=== PATIENT | male | born 1980 | race Caucasian/White ===

== ENCOUNTER 2017-02-09 12:45 | Emergency (ER) | payer SELFPAY ==
[2017-02-09 12:56] VITALS: BP 111/67
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
== END 2017-02-09 13:12 | disposition home or self-care (01) ==
LOC: UCCORT 12:45
DX: S60.111A Contusion of right thumb with damage to nail, initial encounter (principal); W23.0XXA Caught, crushed, jammed, or pinched between moving objects, initial encounter; Y93.9 Activity, unspecified; Y92.9 Unspecified place or not applicable; F17.210 Nicotine dependence, cigarettes, uncomplicated
CPT/HCPCS: 11740; 99211; G0463

== ENCOUNTER 2019-04-20 10:15 | Emergency (ER) | payer OTHER ==
[2019-04-20 10:58] VITALS: BP 135/84
--- NOTE | 2019-04-20 11:10 | UC ---
Back Pain HPI - HPI Summary HPI Summary: 38-year-old male who awakened this morning with low back pain and shooting from his right buttock partly down his leg. He denies any saddle anesthesia, no numbness or tingliness extremities, no difficulty urinating. 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 - History of Current Complaint Chief Complaint: UCBackPain Stated Complaint: BACK PAIN Time Seen by Provider: 04/20/19 10:52 Hx Obtained From: Patient Onset/Duration: Sudden Onset Timing: Constant Severity Initially: Moderate Severity Currently: Moderate Pain Intensity: 8 Character: Sharp, Aching Aggravating Factor(s): Movement, Lifting, Bending Alleviating Factor(s): Nothing Associated Signs And Symptoms: Negative: Weakness, Numbness, Tingling, Abdominal Pain, Flank Pain, Bladder Incontinence, Bowel Incontinence - Allergies/Home Medications Allergies/Adverse Reactions: Allergies Allergy/AdvReac Type Severity Reaction Status Date / Time No Known Allergies Allergy Verified 04/20/19 10:51 Home Medications: Home Medications Ibuprofen TAB* [Advil TAB*] 800 mg PO Q8H PRN 04/20/19 [History Confirmed ] PMH/Surg Hx/FS Hx/Imm Hx Previously Healthy: Yes - Surgical History Surgical History: None - Family History Known Family History: Positive: Unknown - Social History Occupation: Employed Full-time Lives: With Family Alcohol Use: Occasionally Substance Use Type: None Smoking Status (MU): Light Every Day Tobacco Smoker Type: Cigarettes Amount Used/How Often: 2-3 cigarettes Have You Smoked in the Last Year: Yes - Immunization History Most Recent Influenza Vaccination: none Review of Systems All Other Systems Reviewed And Are Negative: Yes Motor: Positive: Negative Neurovascular: Positive: Negative Musculoskeletal: Positive: Other: - Pain in right lower back with movement. Neurological: Positive: Negative. Negative: Weakness, Paresthesia, Numbness Psychological: Positive: Negative Is Patient Immunocompromised?: No Physical Exam Triage Information Reviewed: Yes Appearance: Well-Appearing, No Pain Distress, Well-Nourished Vital Signs: Initial Vital Signs Temp 97.7 F 04/20/19 10:52 Pulse 72 04/20/19 10:52 Resp 17 04/20/19 10:52 BP 135/84 04/20/19 10:52 Pulse Ox 99 04/20/19 10:52 Vital Signs Reviewed: Yes Respiratory: Positive: Lungs clear, Normal breath sounds, No respiratory distress, No accessory muscle use Cardiovascular: Positive: RRR, No Murmur, Pulses Normal, Brisk Capillary Refill Abdomen Description: Positive: Nontender, No Organomegaly, Soft. Negative: CVA Tenderness (R), CVA Tenderness (L) Bowel Sounds: Positive: Present Musculoskeletal: Positive: Strength Intact, ROM Intact, Other: - Mild tenderness on palpation right lower back and buttock area. Mildly positive right straight leg raise. Good peripheral pulses, neuro sensation, and capillary refill. Patient is able to ambulate without too much difficulty. Neurological: Positive: Alert, Muscle Tone Normal Psychological Exam: Normal Skin Exam: Normal Back Pain Course/Dx - Course Course Of Treatment: The patient states that he basically needs a work note. 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 I'm going to give him off until Saturday with a muscle relaxant and Motrin and to apply heat or ice to the sore areas. - Differential Dx/Diagnosis Provider Diagnosis: Low back strain, Right sided sciatica Discharge ED - Sign-Out/Discharge Documenting (check all that apply): Patient Departure All imaging exams completed and their final reports reviewed: No Studies - Discharge Plan Condition: Fair Disposition: HOME Prescriptions: Cyclobenzaprine TAB* [Flexeril 10 MG TAB*] 10 mg PO TID PRN #15 tab PRN Reason: Pain - Moderate Ibuprofen TAB* [Motrin TAB* 600 MG] 600 mg PO Q8H PRN #30 tab PRN Reason: Pain - Moderate Patient Education Materials: Sciatica (ED) Forms: *Work Release Referrals: No Primary Care Phys,NOPCP [Primary Care Provider] - [facility] [Outside] Additional Instructions: Avoid movements that cause pain, apply ice or heat to the sore area which ever feels good. No operating machinery, driving or drinking alcohol while taking the muscle relaxant. [facility] if no improvement in 2 or 3 days. You may want to follow-up with neurosurgery regarding your chronic back problems. Avoid lifting over the next few days - Billing Disposition and Condition Condition: FAIR Disposition: Home
== END 2019-04-20 11:30 | disposition home or self-care (01) ==
LOC: UCCORT 10:15
DX: S39.012A Strain of muscle, fascia and tendon of lower back, initial encounter (principal); X58.XXXA Exposure to other specified factors, initial encounter; Y92.9 Unspecified place or not applicable; M54.31 Sciatica, right side; F17.210 Nicotine dependence, cigarettes, uncomplicated
CPT/HCPCS: 99212; G0463

== ENCOUNTER 2019-08-28 12:17 | Emergency (ER) | payer SELFPAY ==
[2019-08-28 12:34] VITALS: BP 136/86
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
== END 2019-08-28 13:06 | disposition home or self-care (01) ==
LOC: UCCORT 12:17
DX: S39.012A Strain of muscle, fascia and tendon of lower back, initial encounter (principal); F17.210 Nicotine dependence, cigarettes, uncomplicated; X50.0XXA Overexertion from strenuous movement or load, initial encounter; Y92.9 Unspecified place or not applicable; Y99.0 Civilian activity done for income or pay
CPT/HCPCS: 99212; G0463

== ENCOUNTER 2019-10-01 19:10 | Emergency (ER) | payer SELFPAY ==
[2019-10-01 19:32] VITALS: BP 125/73
--- NOTE | 2019-10-01 20:06 | UC ---
Abdominal Pain Male HPI - HPI Summary HPI Summary: Pt presents to with SO. pt with 4-5 days of right UQ abd pain. Pt states pain worse with direct palp, position changes, and deep inspiration. No SOB. No other complaints - no n/v/d. No fever, chills, rash. No cough, sob. no trauma, no back pain, no radiation. No relation to meals. PT states he used to drink a few drinks a day - no history of w/d Pt states stopped drinking all ETOH 1 week ago - concerns his liver is "not working" and the source of pain. Does not currently have PCP - states related to insurance issue Medications as entered in EMR by denture technician reviewed this visit No analgesia taken for pain - History of Current Complaint Chief Complaint: UCAbdominalPain Stated Complaint: ABDOMINAL PAIN Time Seen by Provider: 10/01/19 20:02 Hx Obtained From: Patient Onset/Duration: Gradual Onset Severity Initially: Moderate Severity Currently: Moderate Pain Intensity: 10 - Allergies/Home Medications Allergies/Adverse Reactions: Allergies Allergy/AdvReac Type Severity Reaction Status Date / Time No Known Allergies Allergy Verified 10/01/19 19:32 Home Medications: Home Medications Ibuprofen TAB* [Motrin TAB* 800 MG] 800 mg PO Q8H PRN #21 tab 08/28/19 [Rx Confirmed 10/01/19] PMH/Surg Hx/FS Hx/Imm Hx Previously Healthy: Yes - Surgical History Surgical History: None - Family History Known Family History: Positive: Non-Contributory - Social History Occupation: Employed Full-time Lives: With Family Alcohol Use: Occasionally Substance Use Type: None Smoking Status (MU): Light Every Day Tobacco Smoker Type: Cigarettes Amount Used/How Often: 2-3 cigarettes Have You Smoked in the Last Year: Yes - Immunization History Most Recent Influenza Vaccination: none Vaccination Up to Date: No Review of Systems All Other Systems Reviewed And Are Negative: Yes Constitutional: Positive: Negative Skin: Positive: Negative Eyes: Positive: Negative ENT: Positive: Negative Respiratory: Positive: Negative Cardiovascular: Positive: Negative Gastrointestinal: Positive: Abdominal Pain Genitourinary: Positive: Negative Physical Exam - Summary Physical Exam Summary: Vital Signs Reviewed: Yes A+Ox3, mild discomfort, worse with movement- lying to sitting Eyes: Conjunctiva Clear, BABAR. EOM intact and full, not icteric ENT: Hearing grossly normal TM x 2 clear, mmoist, uvula midline, no exudate, no erythema Neck: Positive: Supple Respiratory: Positive: No respiratory distress, No accessory muscle use + CTA throughout no w/r + TTP inferior anterior right distal ribs, no crepitus Cardiovascular: RRR nl s1, s2 no m/r CBT <2 sec abd soft + BS nd + TTP right UQ at base of distal ribs. no gurading, no reboud no CVA no appreciated organomegaly neg eliazbeth's Musculoskeletal Exam: ADHIKARI x 4 without difficulty Strength Intact, ROM Intact Neurological: Positive: Alert, + sensation throughout Psychological: Positive: Normal Response To grant manager Skin: Positive: no rash, no ecchymosis, no jaundice Triage Information Reviewed: Yes Vital Signs: Initial Vital Signs Temp 97.7 F 10/01/19 19:27 Pulse 90 10/01/19 19:27 Resp 16 10/01/19 19:27 BP 125/73 10/01/19 19:27 Pulse Ox 97 10/01/19 19:27 Re-Evaluation - Re-Evaluation First Eval Comment: urine neg. no plueral effusion on my review Abd Pain Male Course/Dx - Course Course Of Treatment: Pt presents to UC for eval of RUQ pain x 4-5 days. no other sx vital signs reviewd pt with tenderness with direct palp along right inferior ribs and RUQ not toxic appearing pt concerned related to liver, recent stopped ETOH No w/d sx denies risks for hepatitis differential includes: MS, hepatitis, pleural effusion, GB pt strongly objects to ED today for ultrasound labs will check cxr, urine (for bili, blood) and labs pt given infor for physician referral center - strong reommendation for establishment with PCP analgesia strict return precautions -recommendED aware labs will take 1-2 days aware CXR wet read tonight - Differential Dx/Clinical Impression Provider Diagnosis: Abdominal pain Discharge ED - Sign-Out/Discharge Documenting (check all that apply): Patient Departure All imaging exams completed and their final reports reviewed: No - Discharge Plan Condition: Stable Disposition: HOME Patient Education Materials: Abdominal Pain (ED) Referrals: [facility] [Outside] No Primary Care Phys,NOPCP [Primary Care Provider] - Additional Instructions: - As discussed, your urine looked okay tonight. Your blood work that was drawn tonight to look at her liver, pancreas, your total blood count, and her kidney function. These results take one or 2 days to come back. If is any concerning results to receive a call from a care merchandise team manager. -It is recommended to take ibuprofen (Motrin, Advil) every 6 hours for pain or fever. Take with food - It is strongly recommended you establish with a primary care provider. Contact the physician referral Center at the number provided to establish with a new primary provider - If you develop fever, uncontrolled pain, vomiting, or any other concerns is recommended to go immediately to emergency department for further evaluation and treatment. Will likely need ultrasound to look at her liver and gallbladder thickening done at the emergency department or be scheduled to have a primary care provider. - Billing Disposition and Condition Condition: STABLE Disposition: Home
--- NOTE | 2019-10-02 08:08 | UC ---
- Progress Note Progress Note: Reviewed radiology read: no active cardiopulmonary disease. Course/Dx - Diagnoses Provider Diagnoses: Abdominal pain Discharge ED - Sign-Out/Discharge Documenting (check all that apply): Patient Departure All imaging exams completed and their final reports reviewed: Yes - Discharge Plan Condition: Stable Disposition: HOME Patient Education Materials: Abdominal Pain (ED) Referrals: [facility] [place] [facility] [place]] No Primary Care Phys,NOPCP [Primary Care Provider] - Additional Instructions: - As discussed, your urine looked okay tonight. Your blood work that was drawn tonight to look at her liver, pancreas, your total blood count, and her kidney function. These results take one or 2 days to come back. If is any concerning results to receive a call from a care felt hat steamer. -It is recommended to take ibuprofen (Motrin, Advil) every 6 hours for pain or fever. Take with food - It is strongly recommended you establish with a primary care provider. Contact the physician referral Center at the number provided to establish with a new primary provider - If you develop fever, uncontrolled pain, vomiting, or any other concerns is recommended to go immediately to emergency department for further evaluation and treatment. Will likely need ultrasound to look at her liver and gallbladder thickening done at the emergency department or be scheduled to have a primary care provider. - Billing Disposition and Condition Condition: STABLE Disposition: Home
[2019-10-02 10:44] LABS: Albumin 4.6 g/dL (3.2-5.2); Calcium 9.4 mg/dL (8.6-10.3); Magnesium 2.2 mg/dL (1.9-2.7); Total Bilirubin 0.5 mg/dL (0.2-1.0)
[2019-10-02 10:45] LABS: ABS Basophils 0.1 10^3/ul (0-0.2); ABS Eosinophils 0.5 10^3/ul (0-0.6); ABS Lymphocytes 2.5 10^3/ul (1.0-4.8); ABS Monocytes 0.9 10^3/ul (0-0.8); ABS Neutrophils 4.6 10^3/ul (1.5-7.7); Eosinophil % 5.4 %; Hematocrit 44 % (42-52); Hemoglobin 15.6 g/dL (14.0-18.0); Lymphocyte % 29.4 %; Mean Corpuscular HGB Conc 35 g/dL (31-36); Mean Corpuscular Hemoglobin 34 pg (27-31); Mean Corpuscular Volume 95 fL (80-94); Nucleated Red Blood Cells % 0.1; Platelet Count 292 10^3/uL (150-450); Red Blood Count 4.65 10^6 /uL (4.18-5.48); Red Cell Distribution Width 12 % (10-15); White Blood Count 8.5 10^3/uL (3.5-10.8)
[2019-10-02 10:51] LABS: Albumin/Globulin Ratio 1.6 (1-3); EGFR African American 101.7 (>60); EGFR Non-African American 84.1 (>60); Globulin 2.8 g/dL (2-4); Total Protein 7.4 g/dL (6.4-8.9)
== END 2019-10-01 21:10 | disposition home or self-care (01) ==
LOC: UCCORT 19:10
DX: R10.11 Right upper quadrant pain (principal); F17.210 Nicotine dependence, cigarettes, uncomplicated
CPT/HCPCS: 36415; 71046; 80053; 81003; 83690; 83735; 85025; 99211; G0463

== ENCOUNTER 2021-04-18 14:08 | Observation (INO) ==
[2021-04-18 15:05] LABS: ABS Basophils 0.1 10^3/ul (0-0.2); ABS Eosinophils 0.1 10^3/ul (0-0.6); ABS Lymphocytes 1.9 10^3/ul (1.0-4.8); ABS Monocytes 0.9 10^3/ul (0-0.8); ABS Neutrophils 6.6 10^3/ul (1.5-7.7); Eosinophil % 1.1 %; Hematocrit 47 % (42-52); Hemoglobin 16.6 g/dL (14.0-18.0); Lymphocyte % 19.8 %; Mean Corpuscular HGB Conc 36 g/dL (31-36); Mean Corpuscular Hemoglobin 34 pg (27-31); Mean Corpuscular Volume 95 fL (80-94); Mean Platelet Volume 8.3 fL (7.4-10.4); Platelet Count 306 10^3/uL (150-450); Red Blood Count 4.92 10^6 /uL (4.18-5.48); Red Cell Distribution Width 13 % (10-15); White Blood Count 9.6 10^3/uL (3.5-10.8)
[2021-04-18 15:15] LABS: Albumin 4.9 g/dL (3.2-5.2); Albumin/Globulin Ratio 1.4 (1-3); Calcium 9.8 mg/dL (8.6-10.3); EGFR African American 98.9 (>60); EGFR Non-African American 81.7 (>60); Globulin 3.4 g/dL (2-4); Potassium 4.3 mmol/L (3.5-5.0); Total Bilirubin 0.8 mg/dL (0.2-1.0); Total Protein 8.3 g/dL (6.4-8.9)
[2021-04-18 15:16] LABS: INR 1.04 (0.86-1.15)
[2021-04-18] MEDS ORDERED: levETIRAcetam 1000MG IVPREMIX 1,000 MG/100 ML BAG IVPB ONE (15:28)
[2021-04-18] MEDS ORDERED: Al Hydrox/Mg Hydrox/Simet LIQ 30 ML UDC PO PRN (16:01)
[2021-04-19 12:40] VITALS: BP 118/54
== END 2021-04-19 14:23 | disposition home or self-care (01) ==
LOC: ED 14:08 → MEDTELE 14:08
PROVIDERS: ADMIT Internal Medicine; ATTEND Internal Medicine